=== PATIENT | female | born 1985 | race Two or more races ===

== ENCOUNTER 2018-03-06 14:27 | Emergency (ER) | payer SELFPAY ==
[~2018-03-06] VITALS: Ht 157.5 cm; Wt 62.6 kg
[2018-03-06 14:32] VITALS: BP 155/97
== END 2018-03-06 17:44 | disposition home or self-care (01) ==
LOC: ER 14:27
DX: G44.209 Tension-type headache, unspecified, not intractable (principal); J02.9 Acute pharyngitis, unspecified
CPT/HCPCS: 70450

== ENCOUNTER 2019-08-23 21:30 | Emergency (ER) | payer MEDICAID ==
[~2019-08-23] VITALS: Ht 154.9 cm; Wt 65.3 kg
[2019-08-23] MEDS ORDERED: MORPHINE SULFATE 4 MG/ML SYR/VIAL IV ONE (23:30)
[2019-08-23] MEDS ORDERED: ONDANSETRON HCL 4 MG/2 ML VIAL IV ONE (23:30)
[2019-08-23 23:49] LABS: Basophils # (auto) 0 10 ^3/uL (0-0.2); Basophils % (auto) 0.6 % (0.0-2.0); Eosinophils # (auto) 0.2 10 ^3/uL (0-0.8); Eosinophils % (auto) 2.8 % (0.0-7.0); Hematocrit 41.3 % (36.0-46.0); Hemoglobin 14.2 g/dL (12.2-16.2); Lymphocytes # (auto) 3.4 10 ^3/uL (0.4-5.4); Lymphocytes % (auto) 47.1 % (10.0-50.0); Mean Corpuscular Hemoglobin 28.8 pg (28.0-32.0); Mean Corpuscular Hgb Conc. 34.5 g/dL (32.0-36.0); Mean Corpuscular Volume 83.5 fL (80.0-100.0); Monocytes # (auto) 0.8 10 ^3/uL (0-1.3); Monocytes % (auto) 11.6 % (0.0-12.0); Neutrophils # (auto) 2.7 10 ^3/uL (1.6-8.6); Neutrophils % (auto) 37.9 % (37.0-80.0); Nucleated Red Blood Cells % 0.1 %; Platelet Count (auto) 284 10^3/uL (140-450); Red Blood Cells 4.95 10^6/uL (4.0-5.20); Red Cell Distribution Width 13.4 % (11.8-14.3); White Blood Cell 7.2 10^3/uL (4.4-10.8)
[2019-08-24 00:03] LABS: INR 0.98 (0.9-1.15)
[2019-08-24 00:09] LABS: Albumin 3.6 g/dL (3.4-5.0); BUN/Creatinine Ratio 16.7; Calcium 8.3 mg/dL (8.5-10.1); Potassium 3.6 mmol/L (3.5-5.1)
[2019-08-24 00:12] LABS: Bilirubin, Total 0.3 mg/dL (0.2-1.0); Total Protein 7.8 g/dL (6.4-8.2)
[2019-08-24 02:00] VITALS: BP 91/54
== END 2019-08-24 03:09 | disposition home or self-care (01) ==
LOC: ER 21:32
DX: G51.0 Bell's palsy (principal); H92.02 Otalgia, left ear
CPT/HCPCS: 36415; 70450; 80053; 84702; 85025; 85610; 96374; 96375; 99284; J2270; J2405

== ENCOUNTER 2021-01-13 23:53 | Emergency (ER) | payer MEDICAID ==
[~2021-01-13] VITALS: Ht 160 cm; Wt 61.2 kg
[2021-01-13 23:53] VITALS: BP 152/83
== END 2021-01-14 01:24 | disposition left against medical advice (07) ==
LOC: ER 23:53
DX: K14.6 Glossodynia (principal); Z53.21 Procedure and treatment not carried out due to patient leaving prior to being seen by health care provider